=== PATIENT | male | born 1960 | race African-American/Black ===

== ENCOUNTER 2016-10-30 10:57 | Day surgery (SDC) | payer OTHER ==
--- NOTE | ~2016-10-30 | EGD ---
EGD REPORT [facility] [address] [place] [address] NAME: SIDDHARTHA MARTINEZ : 56 STATUS : REG [facility]#: [id number] AGE: 56 ADM/REG DATE : 10/30/16 MR#: [id number] REPORT SERV DATE: 10/30/16 DICTATED BY: POLI CASTLE DATE: 10/30/16 REPORT STATUS : Draft TRANS[facility]IBED BY: [facility] DATE: 10/30/16 [facility] Center Patient Name: Siddhartha Martinez Date of : 1960 Attending MD: POLI CASTLE MD Procedure Date No Time: 10/30/2016 Procedure: Colonoscopy Indications: Personal history of colonic polyps Referring MD: ISAIAH PAVON Medicines: Propofol per Anesthesia Complications: No immediate complications. Procedure: Pre-Anesthesia Assessment: - ASA Grade Assessment: II - A patient with mild systemic disease. After I obtained informed consent, the scope was passed under direct vision. Throughout the procedure, the patient's blood pressure, pulse, and oxygen saturations were monitored continuously. The CF [id number] was introduced through the anus and advanced to the cecum, identified by appendiceal orifice and ileocecal valve. The colonoscopy was performed without difficulty. Findings: The perianal and digital rectal examinations were normal. Many medium-mouthed diverticula were found in the recto-sigmoid colon, in the sigmoid colon and in the ascending colon. Internal hemorrhoids were found during retroflexion and were Grade I (internal hemorrhoids that do not prolapse). The rest of the colon was normal. Impression: - Diverticulosis in the recto-sigmoid colon, in the sigmoid colon and in the ascending colon. - Internal hemorrhoids. Recommendation: - Discharge patient to home (ambulatory). - Repeat colonoscopy in 5 years for surveillance. Procedure Code(s): --- Professional --- 70153, Colonoscopy, flexible, proximal to splenic flexure; diagnostic, with or without collection of specimen(s) by brushing or washing, with or without colon decompression (separate procedure) Diagnosis Code(s): --- Professional --- K64.0, First degree hemorrhoids EGD REPORT [address] [place] [address] NAME: SIDDHARTHA MARTINEZ : 56 STATUS : REG [facility]#: [id number] AGE: 56 ADM/REG DATE : 10/30/16 MR#: [id number] REPORT SERV DATE: 10/30/16 DICTATED BY: POLI CASTLE. DATE: 10/30/16 REPORT STATUS : Draft TRANSCRIBED BY: [employer] DATE: 10/30/16 K57.30, Diverticulosis of large intestine without perforation or abscess without bleeding Z86.010, Personal history of colonic polyps CPT copyright 2013 [employer]. All rights reserved. The codes documented in this report are preliminary and upon mortician helper review may be revised to meet current compliance requirements. Poli Castle MD POLI CASTLE MD 10/30/2016 11:57 AM This report has been signed electronically. Number of Addenda: 0 Note Initiated On: 10/30/2016 10:39 AM Scope Withdrawal Time 0 hours 6 minutes 8 seconds [address] [place] [address]
[~2016-10-30 10:57] MED LIST: AMB10 PO; ASAB PO; NEXIUM40 PO; NORV10 PO; OXYCON10 PO; X25 PO
== END 2016-10-30 23:59 | disposition home or self-care (01) ==
LOC: DMU 10:57
PROVIDERS: Internal Medicine Gastroenterology
PROC: 0DJD8ZZ Inspection of Lower Intestinal Tract, Via Natural or Artificial Opening Endoscopic (ICD-10-PCS; principal; 2016-10-30 11:30)
DX: K64.0 First degree hemorrhoids (principal); K57.30 Diverticulosis of large intestine without perforation or abscess without bleeding; E66.9 Obesity, unspecified; K21.9 Gastro-esophageal reflux disease without esophagitis; I10 Essential (primary) hypertension; Z86.010 Personal history of colon polyps; Z88.2 Allergy status to sulfonamides; Z88.0 Allergy status to penicillin; Z88.8 Allergy status to other drugs, medicaments and biological substances; Z79.891 Long term (current) use of opiate analgesic; Z79.82 Long term (current) use of aspirin; Z79.899 Other long term (current) drug therapy; Z96.643 Presence of artificial hip joint, bilateral; Z98.890 Other specified postprocedural states